=== PATIENT | female | born 1970 | race Caucasian/White ===

== ENCOUNTER → 2018-07-27 | Day surgery (SDC) | payer OTHER ==
[2018-07-27 09:53] VITALS: TEMP 99; BMI 32.0
[2018-07-27 12:12] VITALS: BP 134/85; PULSE 120
--- NOTE | 2018-07-27 12:15 | MM ---
EXAMINATION TYPE: MG stereo VAD BX RT DATE OF EXAM: 07/27/2018 COMPARISON: Recent outside mammogram from [facility]. CLINICAL HISTORY: Abnormal outside mammogram. TECHNIQUE: Stereotactic guided core biopsy of right breast with clip placement and follow-up diagnostic 2 view right breast mammogram. FINDINGS: The procedure of stereotactic guided core biopsy was explained to the patient. Benefits, alternatives, and risks were discussed. An informed consent was then obtained. Outside images were reviewed on outside PACS system. Lesion of concern is marked posterior inferior medial aspect. Repeat 3-D mammographic images were performed today and show heterogeneously dense tissue with persistent area of concern marked posterior inferior medial aspect. The shortness pathway for biopsy was chosen. Shortness pathway was inferior approach. I performed the localization then performed the remainder of the procedure. A vacuum assisted biopsy gun was used to obtain multiple core samples. The patient tolerated the procedure well without any immediate complication. The patient was kept in the radiology department for short stay after the procedure and then discharged home in stable condition. Post biopsy mammogram shows the clip to appear in satisfactory position relative to the targeted area of concern on the preprocedure images on cc view, on the true lateral view it is likely adequate or less than 2 cm inferiorly displaced. IMPRESSION: SUCCESSFUL, UNCOMPLICATED STEREOTACTIC GUIDED CORE BIOPSY OF AREA OF CONCERN IN THE RIGHT BREAST, FULL PATHOLOGY RESULTS TO FOLLOW. Low to Intermediate index of suspicion noted at time of procedure. 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 See note. Recommendation Surgical consult of the right breast. JAMIE
== END | disposition home or self-care (01) ==
LOC: RADMAMWWP 09:23
PROVIDERS: ATTEND Internal Medicine
DX: C50.911 Malignant neoplasm of unspecified site of right female breast (principal); Z17.0 Estrogen receptor positive status [ER+]; Z88.2 Allergy status to sulfonamides; Z91.040 Latex allergy status
CPT/HCPCS: 88305; 88342; 88341; 19081; A4648; J2001

== ENCOUNTER → 2019-05-02 | Outpatient (CLI) | payer OTHER ==
--- NOTE | 2019-05-02 11:42 | BD ---
EXAMINATION TYPE: Axial Bone Density DATE OF EXAM: 05/02/2019 COMPARISON: NONE CLINICAL HISTORY: Postmenopausal female. Breast cancer. Height: 62.5 IN Weight: 194 LBS FRAX RISK QUESTIONS: Secondary Osteoporosis: 3. Menopause before 45: PARTIAL HYST AGE 31 RISK FACTORS HISTORY OF: Active: YES Postmenopausal woman: PARTIAL HYST AGE 31. Take estrogen and/or progesterone medications: NOT NOW How long: TOOK CONTROL FOR 1 YEAR MEDICATIONS: Additional Medications: MULTI VIT, VIT D, LETROZOLE, LUPRON INJ EVERY 3 MONTHS FOR BREAST CANCER, Additional History: BREAST CANCER WITH CHEMO AND RADIATION EXAM MEASUREMENTS: Bone mineral densitometry was performed using the INPHI System. Bone mineral density as measured about the Lumbar spine is: ----- L1-L4(G/cm2): 1.106 T Score Values are as follows: ----- L2: -0.8 ----- L3: -0.8 ----- L4: 0.3 ----- L1-L4: -0.6 Bone mineral density BASELINE Bone mineral density about the R hip (g/cm2): 0.970 Bone mineral density about the L hip (g/cm2): 0.863 T Score values are as follows: -----R Neck: -0.5 -----L Neck: -1.3 -----R Total: 0.5 -----L Total: 0.1 Bone mineral density BASELINE IMPRESSION: Osteopenia (T Score between -2.5 and -1). There is slightly increased risk of fracture and the patient may be considered for treatment. Re-Screen 2-5 years. NOTE: T-SCORE=SD OF THE YOUNG ADULT MEAN.
== END | disposition home or self-care (01) ==
LOC: RADBDWWP 10:27
PROVIDERS: ATTEND Internal Medicine Hematology & Oncology
DX: M85.80 Other specified disorders of bone density and structure, unspecified site (principal); C50.311 Malignant neoplasm of lower-inner quadrant of right female breast; N95.1 Menopausal and female climacteric states; Z79.890 Hormone replacement therapy
CPT/HCPCS: 77080